=== PATIENT | male | born 1955 | race Asian ===

== ENCOUNTER 2025-04-08 18:15 | Inpatient (IN) | payer OTHER, SELFPAY ==
[~2025-04-08 18:15] MED LIST: Iopamidol-370 76% 500 ML MDV (1 ML CHARGE) ONE
[2025-04-08 19:15] LABS: #Basophils 0.04 10x3/uL (0.0-0.2); #Eosinophils 0.23 10x3/uL (0.0-0.7); #Monocytes 0.74 10x3/uL (0.11-0.59); #Neutrophils 5.09 10x3/uL (1.40-6.50); %Basophils 0.5 % (0.0-1.0); %Eosinophils 2.9 % (0.0-10.0); %Lymphocytes 22.6 % (21.0-51.0); %Monocytes 9.4 % (0.0-10.0); %Neutrophils 64.3 % (42.0-75.0); Hematocrit 41.5 % (42.0-52.0); Hemoglobin 13.1 g/dL (14.0-18.0); Mean Corpuscular Hemoglobin 30.5 pg (27.0-31.0); Mean Corpuscular Volume 96.7 fL (78.0-98.0); Platelet Count 235 10x3/uL (130-400); Red Blood Cell (RBC) Count 4.29 mill/uL (4.70-6.10); White Blood Cell (WBC) Count 7.91 10x3/uL (4.8-10.8)
[2025-04-08 19:30] LABS: ALT (SGPT) 19 U/L (Less than 45); AST (SGOT) 34 U/L (11-34); Albumin 4.2 g/dL (3.1-4.5); Alkaline Phosphatase 75 U/L (40-110); Anion Gap 10 mmol/L (10-20); BUN (Urea Nitrogen) 16 mg/dL (8.4-25.7); Bilirubin, Total 0.7 mg/dL (0.3-1.2); Calc. Creatinine Clearance 0 mL/min (70-130); Calcium 9.2 mg/dL (7.8-10.44); Carbon Dioxide 29 mmol/L (23-31); Chloride 103 mmol/L (98-107); Globulin 3.1 g/dL (2.4-3.5); Glucose 82 mg/dL (83-110); Potassium 3.9 mmol/L (3.5-5.1); Sodium 138 mmol/L (136-145)
[2025-04-09] MEDS ORDERED: Ondansetron PF 4 MG/2 ML Vial IVP PRN (00:14)
[2025-04-09] MEDS ORDERED: Calcium Carbonate 500 MG ChewTAB PO PRN (00:14)
[2025-04-09] MEDS ORDERED: hydrALAZINE 20 MG/ML VIAL SLOW IVP PRN (00:14)
[2025-04-09] MEDS ORDERED: Acetaminophen 325 MG TAB PO PRN (00:14)
[2025-04-09] MEDS ORDERED: Senokot S 8.6-50 MG TAB PO PRN (00:14)
[2025-04-09] MEDS ORDERED: Electrolyte Replacement Protocol 1 EACH FS SCH (00:15)
[2025-04-09 01:01] VITALS: BMI 21.7
[2025-04-09] MEDS ORDERED: Potassium Chloride 20 MEQ in Premix 1 BAG IVPB PRN (02:00)
[2025-04-09] MEDS ORDERED: Magnesium 2 GM/50 ML(in water) 2 GM in Premix 1 BAG IVPB PRN (02:00)
[2025-04-09] MEDS ORDERED: PHOS-NAK 1 PKT PACK PO PRN (02:00)
[2025-04-09 04:26] LABS: #Basophils 0.04 10x3/uL (0.0-0.2); #Eosinophils 0.34 10x3/uL (0.0-0.7); #Monocytes 0.75 10x3/uL (0.11-0.59); #Neutrophils 5.03 10x3/uL (1.40-6.50); %Basophils 0.5 % (0.0-1.0); %Eosinophils 4.4 % (0.0-10.0); %Lymphocytes 19.5 % (21.0-51.0); %Monocytes 9.8 % (0.0-10.0); %Neutrophils 65.5 % (42.0-75.0); Hematocrit 40.3 % (42.0-52.0); Hemoglobin 12.7 g/dL (14.0-18.0); Mean Corpuscular Hemoglobin 30.2 pg (27.0-31.0); Mean Corpuscular Volume 96.0 fL (78.0-98.0); Platelet Count 224 10x3/uL (130-400); Red Blood Cell (RBC) Count 4.20 mill/uL (4.70-6.10); White Blood Cell (WBC) Count 7.68 10x3/uL (4.8-10.8)
[2025-04-09 04:57] LABS: ALT (SGPT) 17 U/L (Less than 45); AST (SGOT) 33 U/L (11-34); Albumin 3.9 g/dL (3.1-4.5); Alkaline Phosphatase 68 U/L (40-110); Anion Gap 14 mmol/L (10-20); BUN (Urea Nitrogen) 17 mg/dL (8.4-25.7); Bilirubin, Total 0.4 mg/dL (0.3-1.2); Calc. Creatinine Clearance 55 mL/min (70-130); Calcium 9.2 mg/dL (7.8-10.44); Carbon Dioxide 25 mmol/L (23-31); Cardiac Risk 5.6 (Less than 4.5); Chloride 106 mmol/L (98-107); Cholesterol 242 mg/dl (< 200 Desired); Globulin 3.0 g/dL (2.4-3.5); Glucose 82 mg/dL (83-110); HDL Cholesterol 43 mg/dL (>60 Neg Risk); Iron 69 ug/dL (65-175); Iron Binding Capacity, Total 224 mcg/dL (261-462); LDL Cholesterol, Calculated 136 mg/dL; Potassium 3.6 mmol/L (3.5-5.1); Sodium 141 mmol/L (136-145); Triglycerides 313 mg/dL (Less than 150)
[2025-04-09 04:58] LABS: Iron 69 ug/dL (65-175); Iron Binding Capacity, Total 224 mcg/dL (261-462)
[2025-04-09 05:18] LABS: Ferritin 360.07 ng/mL (22-322); Thyroid Stimulating Hormone 2.0813 uIU/mL (0.35-4.94)
[2025-04-09] MEDS: Enoxaparin 40 MG (0.4 mL) SYRINGE SC SCH (09:49)
[2025-04-09] MEDS: Aspirin 81 mg Enteric Coated Tablet PO SCH (09:50)
[2025-04-09] MEDS: FLU (Fluad Triv) 25-26 (65UP)PF 45 MCG/0.5 ML Syringe IM ONE (13:59)
[2025-04-09] MEDS: PNEUMOC 20-VAL CONJ-DIP CRM/PF 0.5 ML SYRINGE IM ONE (14:00)
[2025-04-09] MEDS: Lisinopril 10 MG TAB PO SCH (20:55)
[2025-04-10] MEDS: Enoxaparin 30 MG (0.3 mL) SYRINGE SC SCH (08:30)
[2025-04-10 12:30] VITALS: BP 166/88; TEMP 97.6
== END 2025-04-10 14:33 | disposition home or self-care (01) | DRG 149 ==
LOC: SUATTDRO 18:15 → ERS 18:15 → 2SE 23:19 → OBSVTOIN 04-09 10:55
PROVIDERS: ADMIT Internal Medicine; ATTEND Internal Medicine
PROC: 3E02340 Introduction of Influenza Vaccine into Muscle, Percutaneous Approach (ICD-10-PCS; principal; 2025-04-09)
PROC: 3E0234Z Introduction of Serum, Toxoid and Vaccine into Muscle, Percutaneous Approach (ICD-10-PCS; 2025-04-09)
DX: R42 Dizziness and giddiness (principal); D64.9 Anemia, unspecified; R29.818 Other symptoms and signs involving the nervous system; I10 Essential (primary) hypertension; R00.1 Bradycardia, unspecified; Z98.890 Other specified postprocedural states; E78.5 Hyperlipidemia, unspecified; I77.9 Disorder of arteries and arterioles, unspecified; Z87.891 Personal history of nicotine dependence
CPT/HCPCS: 36415; 70496; 70498; 70551; 80053; 80061; 82728; 83036; 83540; 83550; 84443; 84484; 85025; 93005; 93010; 93306; 96372; G0378; J1650; J7030; Q9967